=== PATIENT | male | born 1955 | race Caucasian/White ===

== ENCOUNTER 2018-02-24 00:54 | Emergency (ER) | payer OTHER ==
[2018-02-24] MEDS ORDERED: NS 1,000 ML IV ONE ×4 (01:09→04:00)
[2018-02-24] MEDS ORDERED: ONDANSETRON 4 MG/2 ML VIAL IVP ONE (01:09)
[2018-02-24] MEDS ORDERED: KETOROLAC 30 MG/1 ML SDV IVP ONE (01:09)
--- NOTE | 2018-02-24 01:16 | EDPHY ---
H & P Stated Complaint: right side/abd pain Time Seen by Provider: 02/24/18 01:08 HPI/ROS: HPI The patient presents with right flank pain which began at 12:10 a.m. And awoke him from sleep. The pain is dull, constant, does not radiate, is severe. Is associated with nausea. He does not have any dysuria or hematuria. He has a history of ureterolithiasis several years ago. His stones have passed spontaneously. He was feeling well when he went to bed last night. REVIEW OF SYSTEMS Constitutional: No fever, no chills. Eyes: No discharge. ENT: No sore throat. Cardiovascular: No chest pain, no palpitations. Respiratory: No cough, no shortness of breath. Gastrointestinal: See HPI Genitourinary: No hematuria. Musculoskeletal: No back pain. Skin: No rashes. Neurological: No headache. PMHx: History of ureterolithiasis, prior orthopedic operations Soc Hx: Here with his partner PHYSICAL General Appearance: Alert, uncomfortable appearing Eyes: Pupils equal and round no pallor or injection ENT, Mouth: Mucous membranes moist Respiratory: There are no retractions, lungs are clear to auscultation Cardiovascular: Regular rate and rhythm Gastrointestinal: Abdomen is soft and non-tender, no masses, bowel sounds normal Back: There is right flank tenderness Neurological: A&O, moves all extremities Skin: Warm and dry, no rashes Musculoskeletal: Neck is supple non tender Extremities: symmetrical, full range of motion Psychiatric: Patient is oriented X 3, there is no agitation Source: Patient Exam Limitations: No limitations - Personal History Current Tetanus/Diphtheria Vaccine: Yes Current Tetanus Diphtheria and Acellular Pertussis (TDAP): Yes - Medical/Surgical History Hx Asthma: No Hx Chronic Respiratory Disease: No Hx Diabetes: No Hx Cardiac Disease: No Hx Renal Disease: No Hx Cirrhosis: No Hx Alcoholism: No Hx HIV/AIDS: No Hx Splenectomy or Spleen Trauma: No Other PMH: left elbow surgery, ankle and shoulder surgery - Social History Smoking Status: Never smoked Constitutional: Initial Vital Signs Temperature (C) 36.3 C 02/24/18 00:56 Heart Rate 59 L 02/24/18 00:56 Respiratory Rate 16 02/24/18 00:56 Blood Pressure 117/79 02/24/18 00:56 O2 Sat (%) 98 02/24/18 00:56 O2 Delivery Mode Room Air Allergies/Adverse Reactions: No Known Allergies Allergy (Verified 02/24/18 00:59) Home Medications: Medication Instructions Recorded Omeprazole [Prilosec] 0 mg PO 12/20/15 Medical Decision Making - Diagnostics Imaging Results: Bedside renal Ultrasound- performed and interpreted by me. Indication: Right-sided flank pain Findings: Mild right-sided hydronephrosis, small nephrolithiasis seen, no free fluid in Morison's pouch Impression: Mild right-sided hydronephrosis Differential Diagnosis: This is a 62-year-old man with prior history of ureterolithiasis who presents with 1 hr of severe right-sided flank pain which awoke him from sleep. This is associated with nausea. On exam, vital signs are normal, he is uncomfortable appearing, he has right flank tenderness. Differential diagnosis includes ureterolithiasis, pyelonephritis, less likely AAA. In the emergency department, IV was established and the patient was given 2 L of fluid. He was given pain medication and antiemetics. He felt much better after a single dose of Toradol. He required 4 L of fluid IV before he could provide a urine sample. This did demonstrate hematuria without any signs of infection. Bedside ultrasound showed hydronephrosis on the right. I suspect he is suffering from ureterolithiasis. He has history of prior kidney stones which he has passed all spontaneously. I do not think he needs a CT scan at this time given this. I have provided him with a strainer, medication to go home with and instructions for follow-up with Urology if symptoms continue. He is feeling well enough to go home. - Data Points Laboratory Results: Laboratory Results 02/24/18 01:00 02/24/18 01:00 02/24/18 02/24/18 02/24/18 04:35 01:00 01:00 WBC 9.45 10^3/uL 10^3/uL (3.80-9.50) RBC 5.30 10^6/uL 10^6/uL (4.40-6.38) Hgb 15.2 g/dL g/dL (13.7-17.5) Hct 45.1 % % (40.0-51.0) MCV 85.1 fL fL (81.5-99.8) MCH 28.7 pg pg (27.9-34.1) MCHC 33.7 g/dL g/dL (32.4-36.7) RDW 14.4 % % (11.5-15.2) Plt Count 341 10^3/uL 10^3/uL (150-400) MPV 8.8 fL fL (8.7-11.7) Neut % (Auto) 46.0 % % (39.3-74.2) Lymph % (Auto) 44.1 % % (15.0-45.0) Sullivan % (Auto) 6.7 % % (4.5-13.0) Eos % (Auto) 2.3 % % (0.6-7.6) Baso % (Auto) 0.7 % % (0.3-1.7) Nucleat RBC Rel Count 0.0 % % (0.0-0.2) Absolute Neuts (auto) 4.34 10^3/uL 10^3/uL (1.70-6.50) Absolute Lymphs (auto) 4.17 10^3/uL H 10^3/uL (1.00-3.00) Absolute Monos (auto) 0.63 10^3/uL 10^3/uL (0.30-0.80) Absolute Eos (auto) 0.22 10^3/uL 10^3/uL (0.03-0.40) Absolute Basos (auto) 0.07 10^3/uL 10^3/uL (0.02-0.10) Absolute Nucleated RBC 0.00 10^3/uL 10^3/uL (0-0.01) Immature Gran % 0.2 % % (0.0-1.1) Immature Gran # 0.02 10^3/uL 10^3/uL (0.00-0.10) Sodium 141 mEq/L mEq/L (135-145) Potassium 4.1 mEq/L mEq/L (3.3-5.0) Chloride 105 mEq/L mEq/L (97-110) Carbon Dioxide 26 mEq/l mEq/l (22-31) Anion Gap 10 mEq/L mEq/L (8-16) BUN 23 mg/dL mg/dL (7-23) Creatinine 1.0 mg/dL mg/dL (0.7-1.3) Estimated GFR > 60 Glucose 95 mg/dL mg/dL (70-100) Calcium 9.7 mg/dL mg/dL (8.5-10.4) Urine Color YELLOW Urine Appearance CLEAR Urine pH 5.0 (5.0-7.5) Ur Specific Lorida 1.019 (1.002-1.030) Urine Protein NEGATIVE (NEGATIVE) Urine Ketones NEGATIVE (NEGATIVE) Urine Blood 2+ H (NEGATIVE) Urine Nitrate NEGATIVE (NEGATIVE) Urine Bilirubin NEGATIVE (NEGATIVE) Urine Urobilinogen NEGATIVE EU EU (0.2-1.0) Ur Leukocyte Esterase NEGATIVE (NEGATIVE) Urine RBC 15-25 /hpf H /hpf (0-3) Urine WBC 1-3 /hpf /hpf (0-3) Ur Epithelial Cells NONE SEEN /lpf /lpf (NONE-1+) Urine Mucus 1+ /lpf /lpf (NONE-1+) Urine Glucose NEGATIVE (NEGATIVE) Medications Given: Discontinued Medications Sodium Chloride (Ns) 1,000 mls @ 0 mls/hr IV ONCE ONE; Wide Open PRN Reason: Protocol Stop: 02/24/18 01:10 Last Admin: 02/24/18 01:22 Dose: 1,000 mls Sodium Chloride (Ns) 1,000 mls @ 0 mls/hr IV ONCE ONE; Wide Open PRN Reason: Protocol Stop: 02/24/18 01:10 Last Admin: 02/24/18 01:22 Dose: 1,000 mls Sodium Chloride (Ns) 1,000 mls @ 0 mls/hr IV ONCE ONE PRN Reason: Wide Open Stop: 02/24/18 02:46 Last Admin: 02/24/18 02:49 Dose: 1,000 mls Sodium Chloride (Ns) 1,000 mls @ 3,000 mls/hr IV ONCE ONE Stop: 02/24/18 04:19 Last Admin: 02/24/18 04:02 Dose: 1,000 mls Ketorolac Tromethamine (Toradol) 15 mg IVP EDNOW ONE Stop: 02/24/18 01:10 Last Admin: 02/24/18 01:22 Dose: 15 mg Ondansetron HCl (Zofran) 4 mg IVP EDNOW ONE Stop: 02/24/18 01:10 Last Admin: 02/24/18 01:22 Dose: 4 mg Ondansetron HCl (Zofran Odt 4 Mg Prepack#2) 1 btl TAKEHOME EDNOW ONE Stop: 02/24/18 05:03 Last Admin: 02/24/18 05:22 Dose: 1 btl Oxycodone/Acetaminophen (Percocet 5/325mg Prepack#4) 1 btl TAKEHOME EDNOW ONE Stop: 02/24/18 05:03 Last Admin: 02/24/18 05:22 Dose: 1 btl Departure - Departure Disposition: Home, Routine, Self-Care Clinical Impression: Ureterolithiasis Condition: Good Instructions: Oxycodone/Acetaminophen (By mouth), Ondansetron (By mouth), Renal Colic (ED) Additional Instructions: 1. Take Ibuprofen or Motrin 600 mg by mouth three times a day. 2. Percocet as needed for severe pain 3. Zofran as needed for nausea 4. Strain urine as directed 5. Return to the Emergency Department for intractable pain, fever or vomiting. 6. Followup with the urologist you have been referred to for unimproved symptoms. Referrals: James Mac MD [Primary Care Provider] - As per Instructions Elvira Sanchez MD [Medical Doctor] - As per Instructions
[2018-02-24 01:19] LABS: PLATELET COUNT 341 10^3/uL (150-400)
[2018-02-24] MEDS ORDERED: ONDANSETRON 4MG PREPACK#2 BTL TAKEHOME ONE (05:02)
[2018-02-24] MEDS ORDERED: OXYCODONE/APAP 5/325MG PREPACK#4 BTL TAKEHOME ONE (05:02)
[2018-02-24 05:29] VITALS: BP 110/70
== END 2018-02-24 05:30 | disposition home or self-care (01) ==
DX: N20.1 Calculus of ureter (principal); E86.9 Volume depletion, unspecified
CPT/HCPCS: 96374; J1885; J2405